=== PATIENT | female | born 1995 | race Asian ===

== ENCOUNTER 2016-08-25 22:09 | Emergency (ER) | payer OTHER ==
[~2016-08-25 22:09] MED LIST: BENADRYL25 M1 PO; LANTUS SOL100 UNITS/ SC; NOVOLOG PE100 UNITS/
--- NOTE | 2016-08-26 00:55 | DIAGNOSTIC IMAGING REPORT ---
PROCEDURE: XR CHEST 2 VIEW INDICATION: FEVER, initial encounter TECHNIQUE: PA and lateral view. COMPARISON: Chest x-ray 12/02/2014 FINDINGS: Small right middle lobe infiltrate . Cardiovascular structures are normal. Bony thorax is unremarkable. IMPRESSION: 1. Right middle lobe infiltrate
--- NOTE | 2016-08-26 02:31 | ED NURSING NOTES ---
Clinical Report - Nurses [facility] [address] [place] [address] 08/25/2016 22:09 Patient: SCOUT MORELOS V TRIAGE Triage time 2225. Acuity: LEVEL 3. Chief Complaint: WHEEZING. Alert. No acute distress. --22:36 Jennifer Anton 22:32 08/25/16. BP: 130/90. HR: 145. RR: 18. O2 saturation: 98%. Temp: 99.9 F. Pain level now 0/10. --22:36 Jennifer Anton. Weight: 68 kg. Height/Length: 66 inches. BMI: 24.2. --22:32 Jennifer Anton. Medications NovoLOG Subcutaneous. --22:34 Jennifer Anton Lantus Subcutaneous. --22:34 Jennifer Anton. Allergies No Known Drug Allergy. --22:34 Jennifer Anton. History Arrived by private vehicle. Historian: patient. Accompanied by family. Onset. (3 weeks ago). ( Pt with 3 weeks of cough, worse today and productive, went to walk in as she needed a work note, sent here due to elevated HR, skin pwd, NAD, denies CP or SOB, audible wheezing). She has had chills, a cough and wheezing. SOCIAL HX: Light tobacco smoker (cigarette). Occasional alcohol use. --22:36 Jennifer Anton. PROBLEMS: Acidosis. Pancreatitis. Diabetes Mellitus. Asthma. Diabetic Ketoacidosis. --22:34 Jennifer Anton. Interventions ID band on patient. To treatment room. --22:36 Jennifer Anton. PHYSICAL ASSESSMENT Ambulatory to room. Patient gowned. GENERAL / NEURO / PSYCH: Alert. Oriented X 4. Appears in no acute distress. HEENT: Mucous membranes are pink. RESPIRATORY: No respiratory distress. The patient can speak in full sentences. Cough. Decreased breath sounds. Wheezing present. CVS: Cardiac rhythm: sinus tachycardia. Capillary refill less than 2 seconds. GI / : Abdomen soft and nontender. Bowel sounds within normal limits. SKIN: Skin is warm and dry. Normal skin turgor. --22:37 Jennifer Anton. NURSING PROGRESS NOTES 22:40 08/25/2016 Ibuprofen PO 600 mg given. Allergies verified and confirmed 5 rights. --22:40 Jennifer Anton 23:03 08/25/2016 Started bag #1 1000 mL IV Fluids IV NS (Saline); bolus of 1000 mL wide open via site #1 --23:04 Jennifer Anton 23:04 08/25/2016 Site #1 started via IV in the left antecubital space with an 20g angiocath, with aseptic technique and good blood return; one attempt. Blood drawn: rainbow set. Labeled in the presence of the patient and sent to the lab. Saline lock flushed with 10 mL saline. --23:04 Jennifer Anton 23:56 08/25/16. BP: 114/75. HR: 120. RR: 18. --23:56 Jennifer Anton The patient reports no complaints. Patient and family informed about reason for wait. Patient waiting for lab results. ( Given iv=ce water and finished Gatorade). --23:56 Jennifer Anton 00:52 08/26/2016 Insulin Reg Subcutaneous 10 unit given. Given in the left upper arm. Allergies verified and confirmed 5 rights. --00:52 Jennifer Anton 00:53 08/26/2016 IV Fluids IV NS Discontinued: bag #1 completed. Total amount infused: 1000 mL. --00:53 Jennifer Anton 00:53 08/26/16. BP: 122/73. HR: 112. RR: 18. O2 saturation: 99%. Temp: 98.2 F. Pain level now 0/10. --00:53 Jennifer Anton Patient and family informed about reason for wait and about plan of care. Patient waiting for radiology results. --00:53 Jennifer Anton <<STRICKEN ENTRY-- Care transferred and report received. --01:21 Tess Guadarrama, RGurdeepN. --END STRIKE>> Charted On Wrong Patient --01:22 Tess Guadarrama R.N. Finger stick glucose: 0134: 275 mg/dL. --02:28 AshleyarminLisette cruz. DISPOSITION / DISCHARGE 02:50 08/26/2016 Site #1 removed upon discharge. Bandaid applied. --02:50 Mc Mccall R.N. Departure time: 0245. Condition at departure: improved. No learning barriers present. Discharge instructions provided and reviewed with the patient. Reviewed warnings. Reviewed medication(s). Reviewed referral to family practice (for BP). Patient verbalized understanding. Written instructions provided in Romansh. The patient was discharged by the physician. She was discharged home and accompanied by claims service adjustor. She left the Emergency Department ambulatory and via private vehicle. Tower Foreman driving. --02:51 Mc Mccall R.N. 02:50 08/26/16. BP: 146/86. HR: 108. RR: 14. O2 saturation: 98%. Pain level now 0/10. --02:51 Mc Mccall R.N. Locked/Released at 08/26/2016 2:53 by Mc Mccall R.N.
--- NOTE | 2016-08-26 02:31 | ED NURSING NOTES ---
Clinical Report - Nurses [facility] [address] [place] [address] 08/25/2016 22:09 Patient: SCOUT MORELOS V TRIAGE Triage time 2225. Acuity: LEVEL 3. Chief Complaint: WHEEZING. Alert. No acute distress. --22:36 Jennifer Anton 22:32 08/25/16. BP: 130/90. HR: 145. RR: 18. O2 saturation: 98%. Temp: 99.9 F. Pain level now 0/10. --22:36 Jennifer Anton. Weight: 68 kg. Height/Length: 66 inches. BMI: 24.2. --22:32 Jennifer Anton. Medications NovoLOG Subcutaneous. --22:34 Jennifer Anton Lantus Subcutaneous. --22:34 Jennifer Anton. Allergies No Known Drug Allergy. --22:34 Jennifer Anton. History Arrived by private vehicle. Historian: patient. Accompanied by family. Onset. (3 weeks ago). ( Pt with 3 weeks of cough, worse today and productive, went to walk in as she needed a work note, sent here due to elevated HR, skin pwd, NAD, denies CP or SOB, audible wheezing). She has had chills, a cough and wheezing. SOCIAL HX: Light tobacco smoker (cigarette). Occasional alcohol use. --22:36 Jennifer Anton. PROBLEMS: Acidosis. Pancreatitis. Diabetes Mellitus. Asthma. Diabetic Ketoacidosis. --22:34 Jennifer Anton. Interventions ID band on patient. To treatment room. --22:36 Jennifer Anton. PHYSICAL ASSESSMENT Ambulatory to room. Patient gowned. GENERAL / NEURO / PSYCH: Alert. Oriented X 4. Appears in no acute distress. HEENT: Mucous membranes are pink. RESPIRATORY: No respiratory distress. The patient can speak in full sentences. Cough. Decreased breath sounds. Wheezing present. CVS: Cardiac rhythm: sinus tachycardia. Capillary refill less than 2 seconds. GI / : Abdomen soft and nontender. Bowel sounds within normal limits. SKIN: Skin is warm and dry. Normal skin turgor. --22:37 Jennifer Anton. NURSING PROGRESS NOTES 22:40 08/25/2016 Ibuprofen PO 600 mg given. Allergies verified and confirmed 5 rights. --22:40 Jennifer Anton 23:03 08/25/2016 Started bag #1 1000 mL IV Fluids IV NS (Saline); bolus of 1000 mL wide open via site #1 --23:04 Jennifer Anton 23:04 08/25/2016 Site #1 started via IV in the left antecubital space with an 20g angiocath, with aseptic technique and good blood return; one attempt. Blood drawn: rainbow set. Labeled in the presence of the patient and sent to the lab. Saline lock flushed with 10 mL saline. --23:04 Jennifer Anton 23:56 08/25/16. BP: 114/75. HR: 120. RR: 18. --23:56 Jennifer Anton The patient reports no complaints. Patient and family informed about reason for wait. Patient waiting for lab results. ( Given iv=ce water and finished Gatorade). --23:56 Jennifer Anton 00:52 08/26/2016 Insulin Reg Subcutaneous 10 unit given. Given in the left upper arm. Allergies verified and confirmed 5 rights. --00:52 Jennifer Anton 00:53 08/26/2016 IV Fluids IV NS Discontinued: bag #1 completed. Total amount infused: 1000 mL. --00:53 Jennifer Anton 00:53 08/26/16. BP: 122/73. HR: 112. RR: 18. O2 saturation: 99%. Temp: 98.2 F. Pain level now 0/10. --00:53 Jennifer Anton Patient and family informed about reason for wait and about plan of care. Patient waiting for radiology results. --00:53 Jennifer Anton <<STRICKEN ENTRY-- Care transferred and report received. --01:21 Tess Guadarrama, RGurdeepN. --END STRIKE>> Charted On Wrong Patient --01:22 Tess Guadarrama R.N. Finger stick glucose: 0134: 275 mg/dL. --02:28 AshleyarminLisette cruz. DISPOSITION / DISCHARGE 02:50 08/26/2016 Site #1 removed upon discharge. Bandaid applied. --02:50 Mc Mccall R.N. Departure time: 0245. Condition at departure: improved. No learning barriers present. Discharge instructions provided and reviewed with the patient. Reviewed warnings. Reviewed medication(s). Reviewed referral to family practice (for BP). Patient verbalized understanding. Written instructions provided in Greek. The patient was discharged by the physician. She was discharged home and accompanied by strategic manager. She left the Emergency Department ambulatory and via private vehicle. Road Crossing Guard driving. --02:51 Mc Mccall R.N. 02:50 08/26/16. BP: 146/86. HR: 108. RR: 14. O2 saturation: 98%. Pain level now 0/10. --02:51 Mc Mccall R.N. Locked/Released at 08/26/2016 2:53 by Mc Mccall R.N.
--- NOTE | 2016-08-26 02:31 | ED ORDER SUMMARY ---
..... Patient: SCOUT MORELOS V OrderSheet [facility] VisitID: [id number] [place] [address] 21y, F Registration Date/Time: 08/25/2016 ORDER SHEET Weight: 68.0 kg Allergies: No Known Drug Allergy GENERAL ORDERS: Chest 2V Urgent (22:49 08/25/2016 Major Lu) (Ack 22:59 AMcQuoid ER Tech1) (23:23 MCampbell) Rapid Influenza Screen (Nasal Pharyngeal) (...) Urgent (22:51 08/25/2016 Major Lu) (Collected 22:52 Major Lu) (0:49 AMcQuoid ER Tech1) CBC w Diff Urgent (22:51 08/25/2016 Major Lu) (Ack 22:59 AMcQuoid ER Tech1) (0:49 AMcQuoid ER Tech1) CMP Urgent (22:51 08/25/2016 Major Lu) (Ack 22:59 AMcQuoid ER Tech1) (0:49 AMcQuoid ER Tech1) UA-Culture if indicated Urgent (22:51 08/25/2016 Major Lu) (Ack 22:59 AMcQuoid ER Tech1) (0:49 AMcQuoid ER Tech1) Urine Urgent (22:51 08/25/2016 Major Lu) (Ack 22:59 AMcQuoid ER Tech1) (0:49 AMcQuoid ER Tech1) Urine Drug Screen Urgent (22:51 08/25/2016 Major Lu) (Ack 22:59 AMcQuoid ER Tech1) (0:49 AMcQuoid ER Tech1) TSH Urgent (22:51 08/25/2016 Major Lu) (Ack 22:59 AMcQuoid ER Tech1) (0:49 AMcQuoid ER Tech1) Culture, Strep Screen Urgent (22:51 08/25/2016 Major Lu) (Ack 22:59 AMcQuoid ER Tech1) (22:59 AMcQuoid ER Tech1) Acetone, Serum Urgent (23:22 08/25/2016 Major Lu) (Ack 23:27 AMcQuoid ER Tech1) (0:49 AMcQuoid ER Tech1) MEDICATION ORDERS: Ibuprofen PO 600 mg (NOW) (22:38 08/25/2016 EBonmarko per protocol) (22:40 EBonham) Insulin Reg Subcut 10 units (HIGH ALERT MEDICATION, NOW) (23:56 08/25/2016 Major Lu) (0:52 EBonham) IV FLUIDS: IV NS : initial bolus none -, then 1000 mL/hr for X1 (NOW) (22:49 08/25/2016 Major Lu) (23:04 EBon) ORDER SHEET NOTES: [Electronically signed by Peter Barnett Dr. (02:38 08/26/2016)] [Electronically signed by Mc Mccall R.N. (02:53 08/26/2016)] [Electronically locked/signed by Mc Mccall R.N. (02:53 08/26/2016)]
--- NOTE | 2016-08-26 02:31 | ED CLINICAL REPORT ---
Clinical Report - Physicians/Mid Levels [facility] [address] [place] [address] 08/25/2016 22:09 Patient: SCOUT MORELOS V Time Seen: 22:38; initial patient contact. Arrived- By private vehicle. Historian- patient. HISTORY OF PRESENT ILLNESS Chief Complaint: COUGH and "FLU". This started about 3 weeks ago and is still present (worse since 1 day ago). The illness is described as moderate. The patient has had sputum production, a cough, difficulty breathing, nasal congestion and sinus pressure. She has had sinus drainage and a nasal discharge. No chest discomfort or pain, fever, muscle aches or chills. No ear pain. Additional history - The patient has had contact with a sick individual. No recent travel. Similar symptoms previously: None. Recent medical care: The patient was seen recently in a clinic (sent here from due to tachycardia). REVIEW OF SYSTEMS No headache, eye discomfort, nausea, vomiting or diarrhea. No pedal edema, calf pain or palpitations. All systems otherwise negative, except as recorded above. PAST HISTORY Pancreatitis. Diabetes Mellitus. Asthma. Diabetic Ke. Surgeries: No history of previous surgery. Additional Surgeries: no known surgeries. Medications: Lantus Subcutaneous. NovoLOG Subcutaneous. Allergies: No Known Drug Allergy. SOCIAL HISTORY Current some days light tobacco smoker. Occasional alcohol use. No drug use. ADDITIONAL NOTES The nursing notes have been reviewed with agreement regarding the chief complaint, PMH and patient medications and allergies. PHYSICAL EXAM Vital Signs: 08/25/2016 22:32 BP: 130/90. HR: 145. RR: 18. O2 saturation: 98%. Temp: 99.9 F. Have been reviewed. Hypertensive. Tachycardic. Respiratory rate normal. Temperature normal. Oxygen saturation normal. Appearance: Alert. No acute distress. Head: Tenderness present to percussion/palpation of the sinuses. Eyes: Eyes normal inspection. ENT: Moderate generalized pharyngeal erythema with right tonsillar swelling and left tonsillar swelling. No right tonsillar exudate or left tonsillar exudate. No muffled or hoarse voice or trismus. The mucous membranes are not dry. Neck: Normal inspection. Neck supple. No lymphadenopathy. CVS: Tachycardia. Heart sounds normal. Normal rhythm. Respiratory: No respiratory distress. Mild bilateral rhonchi present diffusely. Abdomen: Soft and nontender. No organomegaly. Skin: Skin warm and dry. Normal skin color. No rash. Normal skin turgor. Extremities: No calf tenderness. No lower extremity edema. Neuro: Oriented X 3. LABS, X-RAYS, AND EKG Chest X-ray: No acute disease. Normal lung markings present. Normal heart size. Mediastinum normal. Great vessels normal. Soft tissues normal. No infiltrate. No fracture. No bony lesion present. Views: PA and lateral. Technique: good. The X-rays were independently viewed by me and interpreted contemporaneously by me. A comparison with prior films reveals that the findings are unchanged. Interpretation time: 23:27. Laboratory Tests: UA-Culture if indicated: (BETO: 08/25/2016 23:45) ( MsgRcvd 08/26/2016 00:07) Final results Test Result Flag Units (Reference) URINE COLOR STRAW URINE APPEARANCE CLEAR URINE GLUCOSE 3+ (NEGATIVE) URINE BILIRUBIN NEGATIVE (NEGATIVE) URINE KETONE 1+ (NEGATIVE) URINE SPECIFIC GRAVITY 1.015 (1.010-1.030) URINE PH 5.5 (5.0-8.0) URINE PROTEIN NEGATIVE (NEGATIVE) URINE UROBILINOGEN 0.2 EU/dL (0.2-1.0) URINE NITRITE NEGATIVE (NEGATIVE) URINE BLOOD NEGATIVE (NEGATIVE) URINE LEUK ESTERASE NEGATIVE (NEGATIVE) URINE RBC 0-1 rbc/hpf (0-1) URINE WBC 1-3 wbc/hpf (0-1) URINE EPITHELIAL CELLS 1-3 EPI/hpf (0-5) URINE BACTERIA TRACE (<1+) (NONE SEEN) URINE COMMENT CULT NOT INDICATED URINE CULTURES ARE SET-UP BASED ON THE FOLLOWING CRITERIA:POSITIVE NITRITEPOSITIVE LEUKOCYTE ESTERASEGREATER THAN 10 WHITE BLOOD CELLSMODERATE (2+) OR GREATER BACTERIA Urine: (BETO: 08/25/2016 23:45) ( MsgRcvd 08/25/2016 23:58) Final results Test Result Flag Units (Reference) URINE NEGATIVE CBC w Diff: (BETO: 08/25/2016 23:00) ( [facility] [place]:07[place] Final results Test Result Flag Units (Reference) WHITE BLOOD COUNT 14.4 H K/uL (4.5-11.5) RED BLOOD COUNT 5.34 H M/uL (4.00-5.20) HEMOGLOBIN 15.1 gm/dL (12.0-16.0) HEMATOCRIT 45.0 % (36.0-46.0) MEAN CELL VOLUME 84 fL (80-100) MEAN CORPUSCULAR HGB 28 pg (26-34) MEAN CORPUSCULAR HGB CONC 34 g/dL (31-37) RED CELL DISTRIBUTION WIDTH 13.5 % (11.6-14.8) PLATELET COUNT 358 K/uL (150-400) NEUTROPHIL % 73.5 % (50-75) LYMPH % 18.0 L % (25-40) MONO % 6.7 % (3-14) EOSINOPHIL % 1.4 % (0-4) BASOPHIL % 0.4 % (0-2) Acetone, Serum: (BETO: 08/25/2016 23:00) ( [facility] [place]/25/[place] 23:41) Final results Test Result Flag Units (Reference) ACETONE, SERUM QUALITATIVE NEGATIVE (NEGATIVE) Urine Drug Screen: (BETO: 08/25/2016 23:45) ( [facility] [place]/26[place] 00:11) Final results Test Result Flag Units (Reference) AMPHETAMINE/METHAMPHETAMINE NEGATIVE (NEGATIVE) BARBITURATE NEGATIVE (NEGATIVE) BENZODIAZEPINE NEGATIVE (NEGATIVE) CANNABINOID NEGATIVE (NEGATIVE) COCAINE NEGATIVE (NEGATIVE) ECSTASY NEGATIVE (NEGATIVE) METHADONE NEGATIVE (NEGATIVE) OPIATE NEGATIVE (NEGATIVE) The urine drug screen is a qualitative screening test fordrug overdose and abuse. All screen results should beconsidered as presumptive.Drugs screened for are as follows:BenzodiazepinesCocaineAmphetamines/MetamphetaminesTHC (Tetrahydrocannabinol)OpiatesBarbituratesEcstasyMethadonePositive results are unconfirmed. For confirmation, notifythe lab for the specimen to be sent to the reference lab.All confirmations must be performed by a differentmethodology.The ingestion of natural herbal and plant productscontaining Ephedra/Ephedra metabolites can produce in urineone or more substances capable of cross reacting withamphetamine/methamphetamine immunoassays. These testsprovide a preliminary result only. A more specificalternative chemical method must be used to obtain aconfirmed analytical result. CMP: (BETO: 08/25/2016 23:00) ( MsgRcvd 08/25/2016 23:37) Final results Test Result Flag Units (Reference) GLUCOSE 383 H mg/dL (70-110) BUN 9 mg/dL (7-18) CREATININE 1.0 mg/dL (0.6-1.3) Estimated GFR >60 mL/min Estimated GFR- >60 mL/min Note: Persistent reduction over 3 months in eGFR<60 mL/min/1.73 m2 defines CKD. Patients with eGFR values>=60 mL/min/1.73 m2 may also have CKD if evidence ofpersistent proteinuria. Additional information may be foundat www.kidney.org. SODIUM 135 L mmol/L (136-145) POTASSIUM 3.8 mmol/L (3.5-5.1) CHLORIDE 99 mmol/L (98-107) CARBON DIOXIDE 24 mmol/L (21-32) CALCIUM 8.7 mg/dL (8.5-10.1) TOTAL PROTEIN 7.7 g/dL (6.4-8.2) ALBUMIN 3.0 L g/dL (3.3-5.0) BILIRUBIN, TOTAL 0.3 mg/dL (0.0-1.0) ALKALINE PHOSPHATASE 200 H U/L (46-116) AST (SGOT) 31 U/L (15-37) ALT (SGPT) 59 U/L (12-78) THYROID STIMULATING HORMONE 1.763 uIU/mL (0.34-3.74) Culture, Strep Screen: (BETO: 08/25/2016 22:50) ( MsgRcvd 08/25/2016 23:17) Final results Test Result Flag Units (Reference) RAPID STREP SCREEN - THROAT DATE: 08/25/16 NEGATIVE SCREEN: RAPID STREP SCREEN NEGATIVE; CONFIRMATION TO FOLLOW Rapid Influenza Screen: (BETO: 08/25/2016 23:00) ( MsgRcvd 08/25/2016 23:30) Final results SPECIMEN DESCRIPTION: ... Test Result Flag Units (Reference) RAPID INFLUENZA SCREEN DATE: 08/25/16 INFLUENZA A: NEGATIVE SCREEN FOR INFLUENZA A INFLUENZA B: NEGATIVE SCREEN FOR INFLUENZA B . PROGRESS AND PROCEDURES Course of Care: 08/26/2016 00:53 BP: 122/73. HR: 112. RR: 18. O2 saturation: 99%. Temp: 98.2 F. Vital Signs: have been reviewed. Blood pressure normal. Tachycardic. Respiratory rate normal. Temperature normal. Oxygen saturation normal. Disposition: Condition: good. CLINICAL IMPRESSION Acute maxillary sinusitis Poorly controlled type 1 diabetes with hyperglycemia. No hypoglycemia, diabetic ketoacidosis, hyperosmolar nonketotic state or coma. INSTRUCTIONS Your Current Medications: CONTINUE TAKING THE FOLLOWING MEDICATIONS: Lantus Subcutaneous. NovoLOG Subcutaneous. Prescription Medications: Azithromycin Tri-Todd 500 mg tablets: take according to package instructions. Total course 3 days. No refills. Follow-up: Follow up with your doctor in two days. Call for an appointment. Screening today revealed the patient's blood pressure to be in the pre-hypertensive range. The patient should follow up with a primary care provider for blood pressure management. (Electronically signed by Peter Barnett Dr. 08/26/2016 2:38)
--- NOTE | 2016-08-26 02:31 | ED ORDER SUMMARY ---
..... Patient: SCOUT MORELOS V OrderSheet [facility] VisitID: [id number] [place] [address] 21y, F Registration Date/Time: 08/25/2016 ORDER SHEET Weight: 68.0 kg Allergies: No Known Drug Allergy GENERAL ORDERS: Chest 2V Urgent (22:49 08/25/2016 Major Lu) (Ack 22:59 AMcQuoid ER Tech1) (23:23 MCampbell) Rapid Influenza Screen (Nasal Pharyngeal) (...) Urgent (22:51 08/25/2016 Major Lu) (Collected 22:52 Major Lu) (0:49 AMcQuoid ER Tech1) CBC w Diff Urgent (22:51 08/25/2016 Major Lu) (Ack 22:59 AMcQuoid ER Tech1) (0:49 AMcQuoid ER Tech1) CMP Urgent (22:51 08/25/2016 Major Lu) (Ack 22:59 AMcQuoid ER Tech1) (0:49 AMcQuoid ER Tech1) UA-Culture if indicated Urgent (22:51 08/25/2016 Major Lu) (Ack 22:59 AMcQuoid ER Tech1) (0:49 AMcQuoid ER Tech1) Urine Urgent (22:51 08/25/2016 Major Lu) (Ack 22:59 AMcQuoid ER Tech1) (0:49 AMcQuoid ER Tech1) Urine Drug Screen Urgent (22:51 08/25/2016 Major Lu) (Ack 22:59 AMcQuoid ER Tech1) (0:49 AMcQuoid ER Tech1) TSH Urgent (22:51 08/25/2016 Major Lu) (Ack 22:59 AMcQuoid ER Tech1) (0:49 AMcQuoid ER Tech1) Culture, Strep Screen Urgent (22:51 08/25/2016 Major Lu) (Ack 22:59 AMcQuoid ER Tech1) (22:59 AMcQuoid ER Tech1) Acetone, Serum Urgent (23:22 08/25/2016 Major Lu) (Ack 23:27 AMcQuoid ER Tech1) (0:49 AMcQuoid ER Tech1) MEDICATION ORDERS: Ibuprofen PO 600 mg (NOW) (22:38 08/25/2016 EBonmarko per protocol) (22:40 EBonham) Insulin Reg Subcut 10 units (HIGH ALERT MEDICATION, NOW) (23:56 08/25/2016 Major Lu) (0:52 EBonham) IV FLUIDS: IV NS : initial bolus none -, then 1000 mL/hr for X1 (NOW) (22:49 08/25/2016 Major Lu) (23:04 EBon) ORDER SHEET NOTES: [Electronically signed by Peter Barnett Dr. (02:38 08/26/2016)] [Electronically signed by Mc Mccall R.N. (02:53 08/26/2016)] [Electronically locked/signed by Mc Mccall R.N. (02:53 08/26/2016)]
--- NOTE | 2016-08-26 02:53 | ED MED RECONCILIATION SUMMARY ---
Patient: SCOUT MORELOS V Medication Reconciliation Report [facility] VisitID: [id number] [address] [place] [address] 21y, F Registration Date/Time: 08/25/2016 Weight: 68.0 kg Height/Length: 66 in. BMI: 24.2 ALLERGIES: No Known Drug Allergy The patient's Home Medications are listed below: CONTINUE TAKING THE FOLLOWING MEDICATIONS: Lantus Subcutaneous NovoLOG Subcutaneous The source(s) of the original Home Medication information: Not obtained. The following Medications were given to the patient in the Emergency Department: Ibuprofen [PO] PO 600 mg, administered: 08/25/2016 10:40:00 PM IV NS IV Fluids bolus 1000 mL wide open, administered: 08/25/2016 11:03:00 PM Insulin Reg [Subcutaneous] Subcutaneous 10 unit, administered: 08/26/2016 12:52:00 AM The following Medications were prescribed to the patient: Azithromycin Tri-Todd 500 mg tablets: take according to package instructions. Total course 3 days. No refills. -- Peter Barnett Dr.
--- NOTE | 2016-08-26 02:53 | ED DISCHARGE INSTRUCTIONS ---
Patient: SCOUT MORELOS V General Instructions [facility] VisitID: [id number] [place] [address] 21y, F Registration Date/Time: 08/25/2016 Acute maxillary sinusitis Poorly controlled type 1 diabetes with hyperglycemia. No hypoglycemia, diabetic ketoacidosis, hyperosmolar nonketotic state or coma. INSTRUCTIONS Your Current Medications: CONTINUE TAKING THE FOLLOWING MEDICATIONS: Lantus Subcutaneous. NovoLOG Subcutaneous. Prescription Medications: Azithromycin Tri-Todd 500 mg tablets: take according to package instructions. Total course 3 days. No refills. Follow-up: Follow up with your doctor in two days. Call for an appointment. Screening today revealed the patient's blood pressure to be in the pre-hypertensive range. The patient should follow up with a primary care provider for blood pressure management. ADDITIONAL INFORMATION Sinusitis [Abx Tx] The sinuses are air-filled spaces within the bones of the face. They connect to the inside of the nose. Sinusitis is an inflammation of the tissue lining the sinus cavity. Sinus inflammation can occur during a cold or hay-fever (allergies to pollens and other particles in the air) and cause symptoms of sinus congestion and fullness. A sinus infection causes fever, headache and facial pain. There is usually green or yellow drainage from the nose or into the back of the throat (post-nasal drip). Antibiotics are prescribed to treat this condition. Home Care: Drink plenty of water, hot tea, and other liquids to stay well hydrated. This thins the mucus and promotes sinus drainage. Apply heat to the painful areas of the face. Use a towel soaked in hot water. Or, sewing techniques demonstrator the shower and direct the hot spray onto your face. This is a good way to inhale warm water vapor and get heat on your face at the same time. (Cover your mouth and nose with your hands so you can still breathe as you do this.) Use a vaporizer with products such as Vicks VapoRub (contains menthol) at night. Suck on peppermint, menthol or eucalyptus hard candies during the day. An expectorant containing guaifenesin (such as Robitussin), helps to thin the mucus and promote drainage from the sinuses. Ssqy-spz-agcnrre decongestants may be used unless a similar medicine was prescribed. Nasal sprays work the fastest. Use one that contains phenylephrine (Miguel-synephrine, Sinex and others) or oxymetazoline (Afrin). First blow the nose gently to remove mucus, then apply the drops. Do not use these medicines more often than directed on the label or for more than three days or symptoms may worsen. You may also use tablets containing pseudoephedrine (Sudafed). Many sinus remedies combine ingredients, which may increase side effects. Read the labels or ask the pharmacist for help. NOTE: Persons with high blood pressure should not use decongestants. They can raise blood pressure. Antihistamines are useful if allergies are a cause of your sinusitis. The mildest one is chlorpheniramine (available without a prescription). The dose for adults is 8-12mg three times a day. [NOTE: Do not use chlorpheniramine if you have glaucoma or if you are a man with trouble urinating due to an enlarged prostate.] Claritin (loratidine) is an antihistamine that causes less drowsiness and is a good alternative for daytime use. Do not use nasal rinses or irrigation during an acute sinus infection, unless advised by your doctor. Rinsing may spread the infection to other sinuses. You may use acetaminophen (Tylenol) or ibuprofen (Motrin, Advil) to control pain, unless another pain medicine was prescribed. [ NOTE: If you have chronic liver or kidney disease or ever had a stomach ulcer, talk with your doctor before using these medicines.] (Aspirin should never be used in anyone under 18 years of age who is ill with a fever. It may cause severe liver damage.) Finish the full course, even if you are feeling better after a few days. Follow Up with your doctor or this facility in one week or as instructed by our staff if not improving. Get Prompt Medical Attention if any of the following occur: Facial pain or headache becomes more severe Stiff neck Unusual drowsiness or confusion, or not acting like your normal self Swelling of the forehead or eyelids Vision problems including blurred or double vision Fever of 100.4F (38C) or higher, or as directed by your healthcare provider Seizure Azithromycin Oral tablet What is this medicine? AZITHROMYCIN (az ith hiwot MYE sin) is a macrolide antibiotic. It is used to treat or prevent certain kinds of bacterial infections. It will not work for colds, flu, or other viral infections. How should I use this medicine? Take this medicine by mouth with a full glass of water. Follow the directions on the prescription label. The tablets can be taken with food or on an empty stomach. If the medicine upsets your stomach, take it with food. Take your medicine at regular intervals. Do not take your medicine more often than directed. Take all of your medicine as directed even if you think your are better. Do not skip doses or stop your medicine early. Talk to your steam table attendant regarding the use of this medicine in children. Special care may be needed. What side effects may I notice from receiving this medicine? Side effects that you should report to your doctor or health vehicle care specialist as soon as possible: allergic reactions like skin rash, itching or hives, swelling of the face, lips, or tongue confusion, nightmares or hallucinations dark urine difficulty breathing hearing loss irregular heartbeat or chest pain pain or difficulty passing urine redness, blistering, peeling or loosening of the skin, including inside the mouth white patches or sores in the mouth yellowing of the eyes or skin Side effects that usually do not require medical attention (report to your doctor or health vehicle care specialist if they continue or are bothersome): diarrhea dizziness, drowsiness headache stomach upset or vomiting tooth discoloration vaginal irritation What may interact with this medicine? Do not take this medicine with any of the following medications: lincomycin This medicine may also interact with the following medications: amiodarone antacids cyclosporine digoxin magnesium nelfinavir phenytoin warfarin What if I miss a dose? If you miss a dose, take it as soon as you can. If it is almost time for your next dose, take only that dose. Do not take double or extra doses. Where should I keep my medicine? Keep out of the reach of children. Store at room temperature between 15 and 30 degrees C (59 and 86 degrees F). Throw away any unused medicine after the expiration date. What should I tell my health care provider before I take this medicine? They need to know if you have any of these conditions: kidney disease liver disease irregular heartbeat or heart disease an unusual or allergic reaction to azithromycin, erythromycin, other macrolide antibiotics, foods, dyes, or preservatives or trying to get breast-feeding What should I watch for while using this medicine? Tell your doctor or health vehicle care specialist if your symptoms do not improve. Do not treat diarrhea with over the counter products. Contact your doctor if you have diarrhea that lasts more than 2 days or if it is severe and watery. This medicine can make you more sensitive to the sun. Keep out of the sun. If you cannot avoid being in the sun, wear protective clothing and use sunscreen. Do not use sun lamps or tanning beds/booths. You have been given the following additional information: Sinusitis, Abx Tx Azithromycin Oral tablet (Electronically signed by Peter Barnett Dr. 08/26/2016 2:38)
--- NOTE | 2016-08-26 02:53 | ED DISCHARGE INSTRUCTIONS ---
Patient: SCOUT MORELOS V General Instructions [facility] VisitID: [id number] [place] [address] 21y, F Registration Date/Time: 08/25/2016 Acute maxillary sinusitis Poorly controlled type 1 diabetes with hyperglycemia. No hypoglycemia, diabetic ketoacidosis, hyperosmolar nonketotic state or coma. INSTRUCTIONS Your Current Medications: CONTINUE TAKING THE FOLLOWING MEDICATIONS: Lantus Subcutaneous. NovoLOG Subcutaneous. Prescription Medications: Azithromycin Tri-Todd 500 mg tablets: take according to package instructions. Total course 3 days. No refills. Follow-up: Follow up with your doctor in two days. Call for an appointment. Screening today revealed the patient's blood pressure to be in the pre-hypertensive range. The patient should follow up with a primary care provider for blood pressure management. ADDITIONAL INFORMATION Sinusitis [Abx Tx] The sinuses are air-filled spaces within the bones of the face. They connect to the inside of the nose. Sinusitis is an inflammation of the tissue lining the sinus cavity. Sinus inflammation can occur during a cold or hay-fever (allergies to pollens and other particles in the air) and cause symptoms of sinus congestion and fullness. A sinus infection causes fever, headache and facial pain. There is usually green or yellow drainage from the nose or into the back of the throat (post-nasal drip). Antibiotics are prescribed to treat this condition. Home Care: Drink plenty of water, hot tea, and other liquids to stay well hydrated. This thins the mucus and promotes sinus drainage. Apply heat to the painful areas of the face. Use a towel soaked in hot water. Or, hides and skins colorer the shower and direct the hot spray onto your face. This is a good way to inhale warm water vapor and get heat on your face at the same time. (Cover your mouth and nose with your hands so you can still breathe as you do this.) Use a vaporizer with products such as Vicks VapoRub (contains menthol) at night. Suck on peppermint, menthol or eucalyptus hard candies during the day. An expectorant containing guaifenesin (such as Robitussin), helps to thin the mucus and promote drainage from the sinuses. Udwo-rgf-niszycq decongestants may be used unless a similar medicine was prescribed. Nasal sprays work the fastest. Use one that contains phenylephrine (Miguel-synephrine, Sinex and others) or oxymetazoline (Afrin). First blow the nose gently to remove mucus, then apply the drops. Do not use these medicines more often than directed on the label or for more than three days or symptoms may worsen. You may also use tablets containing pseudoephedrine (Sudafed). Many sinus remedies combine ingredients, which may increase side effects. Read the labels or ask the pharmacist for help. NOTE: Persons with high blood pressure should not use decongestants. They can raise blood pressure. Antihistamines are useful if allergies are a cause of your sinusitis. The mildest one is chlorpheniramine (available without a prescription). The dose for adults is 8-12mg three times a day. [NOTE: Do not use chlorpheniramine if you have glaucoma or if you are a man with trouble urinating due to an enlarged prostate.] Claritin (loratidine) is an antihistamine that causes less drowsiness and is a good alternative for daytime use. Do not use nasal rinses or irrigation during an acute sinus infection, unless advised by your doctor. Rinsing may spread the infection to other sinuses. You may use acetaminophen (Tylenol) or ibuprofen (Motrin, Advil) to control pain, unless another pain medicine was prescribed. [ NOTE: If you have chronic liver or kidney disease or ever had a stomach ulcer, talk with your doctor before using these medicines.] (Aspirin should never be used in anyone under 18 years of age who is ill with a fever. It may cause severe liver damage.) Finish the full course, even if you are feeling better after a few days. Follow Up with your doctor or this facility in one week or as instructed by our staff if not improving. Get Prompt Medical Attention if any of the following occur: Facial pain or headache becomes more severe Stiff neck Unusual drowsiness or confusion, or not acting like your normal self Swelling of the forehead or eyelids Vision problems including blurred or double vision Fever of 100.4F (38C) or higher, or as directed by your healthcare provider Seizure Azithromycin Oral tablet What is this medicine? AZITHROMYCIN (az ith hiwot MYE sin) is a macrolide antibiotic. It is used to treat or prevent certain kinds of bacterial infections. It will not work for colds, flu, or other viral infections. How should I use this medicine? Take this medicine by mouth with a full glass of water. Follow the directions on the prescription label. The tablets can be taken with food or on an empty stomach. If the medicine upsets your stomach, take it with food. Take your medicine at regular intervals. Do not take your medicine more often than directed. Take all of your medicine as directed even if you think your are better. Do not skip doses or stop your medicine early. Talk to your 4th grade math teacher regarding the use of this medicine in children. Special care may be needed. What side effects may I notice from receiving this medicine? Side effects that you should report to your doctor or health workforce investment act career manager as soon as possible: allergic reactions like skin rash, itching or hives, swelling of the face, lips, or tongue confusion, nightmares or hallucinations dark urine difficulty breathing hearing loss irregular heartbeat or chest pain pain or difficulty passing urine redness, blistering, peeling or loosening of the skin, including inside the mouth white patches or sores in the mouth yellowing of the eyes or skin Side effects that usually do not require medical attention (report to your doctor or health workforce investment act career manager if they continue or are bothersome): diarrhea dizziness, drowsiness headache stomach upset or vomiting tooth discoloration vaginal irritation What may interact with this medicine? Do not take this medicine with any of the following medications: lincomycin This medicine may also interact with the following medications: amiodarone antacids cyclosporine digoxin magnesium nelfinavir phenytoin warfarin What if I miss a dose? If you miss a dose, take it as soon as you can. If it is almost time for your next dose, take only that dose. Do not take double or extra doses. Where should I keep my medicine? Keep out of the reach of children. Store at room temperature between 15 and 30 degrees C (59 and 86 degrees F). Throw away any unused medicine after the expiration date. What should I tell my health care provider before I take this medicine? They need to know if you have any of these conditions: kidney disease liver disease irregular heartbeat or heart disease an unusual or allergic reaction to azithromycin, erythromycin, other macrolide antibiotics, foods, dyes, or preservatives or trying to get breast-feeding What should I watch for while using this medicine? Tell your doctor or health workforce investment act career manager if your symptoms do not improve. Do not treat diarrhea with over the counter products. Contact your doctor if you have diarrhea that lasts more than 2 days or if it is severe and watery. This medicine can make you more sensitive to the sun. Keep out of the sun. If you cannot avoid being in the sun, wear protective clothing and use sunscreen. Do not use sun lamps or tanning beds/booths. You have been given the following additional information: Sinusitis, Abx Tx Azithromycin Oral tablet (Electronically signed by Peter Barnett Dr. 08/26/2016 2:38)
--- NOTE | 2016-08-26 02:53 | ED MAR SUMMARY ---
..... Medication Administration Record [facility] [address] [place] [address] Patient: SCOUT MORELOS V Visit ID: [id number] 21y, F Weight: 68.0 kg Height/Length: 66 in BMI: 24.2 ALLERGIES: No Known Drug Allergy Given 22:40 08/25/2016 Jennifer Anton, Medication Administered: IBUPROFEN [PO], Dose: 600 mg PO. Medication Ordered: Ibuprofen PO 600 mg (NOW). Start 23:03 08/25/2016 Jennifer Anton,, Stop 00:53 08/26/2016 Jennifer Anton, Medication Administered: IV NS (SALINE), Dose: IV Fluids, Bolus: 1000 mL wide open, Dispensed: 1000 mL bag, Site: #1. Medication Ordered: IV NS : initial bolus none -, then 1000 mL/hr for X1 (NOW). Given 00:52 08/26/2016 Jennifer Anton, Medication Administered: INSULIN REG [SUBCUTANEOUS], Dose: 10 unit Subcutaneous. Medication Ordered: Insulin Reg Subcut 10 units (HIGH ALERT MEDICATION, NOW).
--- NOTE | 2016-08-26 02:53 | ED MAR SUMMARY ---
..... Medication Administration Record [facility] [address] [place] [address] Patient: SCOUT MORELOS V Visit ID: [id number] 21y, F Weight: 68.0 kg Height/Length: 66 in BMI: 24.2 ALLERGIES: No Known Drug Allergy Given 22:40 08/25/2016 Jennifer Anton, Medication Administered: IBUPROFEN [PO], Dose: 600 mg PO. Medication Ordered: Ibuprofen PO 600 mg (NOW). Start 23:03 08/25/2016 Jennifer Anton,, Stop 00:53 08/26/2016 Jennifer Anton, Medication Administered: IV NS (SALINE), Dose: IV Fluids, Bolus: 1000 mL wide open, Dispensed: 1000 mL bag, Site: #1. Medication Ordered: IV NS : initial bolus none -, then 1000 mL/hr for X1 (NOW). Given 00:52 08/26/2016 Jennifer Anton, Medication Administered: INSULIN REG [SUBCUTANEOUS], Dose: 10 unit Subcutaneous. Medication Ordered: Insulin Reg Subcut 10 units (HIGH ALERT MEDICATION, NOW).
--- NOTE | 2016-08-26 02:53 | ED MED RECONCILIATION SUMMARY ---
Patient: SCOUT MORELOS V Medication Reconciliation Report [facility] VisitID: [id number] [address] [place] [address] 21y, F Registration Date/Time: 08/25/2016 Weight: 68.0 kg Height/Length: 66 in. BMI: 24.2 ALLERGIES: No Known Drug Allergy The patient's Home Medications are listed below: CONTINUE TAKING THE FOLLOWING MEDICATIONS: Lantus Subcutaneous NovoLOG Subcutaneous The source(s) of the original Home Medication information: Not obtained. The following Medications were given to the patient in the Emergency Department: Ibuprofen [PO] PO 600 mg, administered: 08/25/2016 10:40:00 PM IV NS IV Fluids bolus 1000 mL wide open, administered: 08/25/2016 11:03:00 PM Insulin Reg [Subcutaneous] Subcutaneous 10 unit, administered: 08/26/2016 12:52:00 AM The following Medications were prescribed to the patient: Azithromycin Tri-Todd 500 mg tablets: take according to package instructions. Total course 3 days. No refills. -- Peter Barnett Dr.
== END 2016-08-26 02:47 | disposition home or self-care (01) ==
LOC: ED SRH 22:09
DX: J01.00 Acute maxillary sinusitis, unspecified (principal); E10.65 Type 1 diabetes mellitus with hyperglycemia; Z79.4 Long term (current) use of insulin; F17.210 Nicotine dependence, cigarettes, uncomplicated
CPT/HCPCS: 90004; 90100; 90154; 90159; 90301; 90627; 91400; 92760; 92761; 92762; 92763; 92764; 92765; 92766; 92767; 93070; 93140; 95059